=== PATIENT | male | born 1995 | race Caucasian/White ===

== ENCOUNTER 2016-07-19 15:46 | Emergency (ER) | payer SELFPAY ==
--- NOTE | 2016-07-20 16:12 | ER ---
ADMIT: 07/19/2016 RM/LOC: ER [facility] MR#: [id number] [facility] [address] [place], [place] [id number] CRISTIN KOCH [address] [facility] [address] [place] [address] Emergency Room Report SEX: M AGE: 21 : 1995 DATE: 07/19/2016 The patient is a 21-year-old, who started the job 2 weeks ago and ever since, he has had some issues with left chest. He says there is a point tenderness, he points to the mid left chest. No radiation. This is sharp pain. He says mostly annoying when he is doing some movement, lifting. REVIEW OF SYSTEMS: Otherwise negative except for the fact that he has some sinus congestion with some cough. He has been having some green nasal drainage all at the same time. PAST MEDICAL HISTORY: Positive for ADHD. MEDICATIONS: He takes Claritin. ALLERGIES: HE HAS NO ALLERGIES. SOCIAL HISTORY: He smokes a 3rd of a pack. PHYSICAL EXAMINATION: VITAL SIGNS: Within normal limits. He is afebrile although he reports some chills at home. GENERAL: He is alert and oriented. HEENT: No sinus tenderness. NECK: Supple. RESPIRATIONS: No distress. CVS: Regular in rate and rhythm. No chest wall tenderness. There is however, muscular, tenderness right at the left pectoral insertion. ABDOMEN: Nontender. SKIN: Good color and turgor. EXTREMITIES: Well perfused. NEURO: Oriented x4. LABORATORY DATA: No labs done. CLINICAL IMPRESSION: Pectoral muscle strain with sinusitis secondary to allergies. Given Z-Earnest and Motrin 800, prescription strength, encouraged to follow up with his primary provider. Instructions given. Left with a prescription for Z-Earnest and Motrin. LAYLA Herrera / Sunny Shannon MD / stephen JOB #: [id number] CC: Sunny Shannon MD, Attending Physician Gaston Floyd MD, Family Physician
== END 2016-07-19 16:45 | disposition home or self-care (01) ==
LOC: ER 15:46
DX: S29.011A Strain of muscle and tendon of front wall of thorax, initial encounter (principal); J32.9 Chronic sinusitis, unspecified; F17.210 Nicotine dependence, cigarettes, uncomplicated; X58.XXXA Exposure to other specified factors, initial encounter

== ENCOUNTER 2016-08-13 01:11 | Emergency (ER) | payer SELFPAY ==
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
== END 2016-08-13 02:07 | disposition home or self-care (01) ==
LOC: ER 01:11
PROC: 2W3JX1Z Immobilization of Right Finger using Splint (ICD-10-PCS; principal; 2016-08-13)
DX: S63.634A Sprain of interphalangeal joint of right ring finger, initial encounter (principal); M20.012 Mallet finger of left finger(s); F17.210 Nicotine dependence, cigarettes, uncomplicated; Y04.0XXA Assault by unarmed brawl or fight, initial encounter